=== PATIENT | female | born 1990 | race Caucasian/White ===

== ENCOUNTER 2024-01-02 19:54 | Inpatient (IN) | payer BC ==
[~2024-01-02 19:54] MED LIST: Acetaminophen 500 MG TAB PO PRN; Carboprost 250 MCG/ML AMP IM PRN; HYDROcodone/Acetaminophen 5/325 mg Tablet PO PRN; Ibuprofen 800 MG TAB PO PRN; Lactated Ringer's 1,000 ML IV SCH; Lidocaine 1% (PF) 30 ML VIAL SC PRN; Oxytocin 30 units/NS 500 ML 500 ML IV SCH; Promethazine HCl 25 MG/ML VIAL IM PRN; fentaNYL 50 mcg/mL 1 mL Vial SLOW IVP PRN; hydrALAZINE 20 MG/ML VIAL SLOW IVP PRN
[2024-01-02 20:32] VITALS: BMI 39.9
[2024-01-02] MEDS ORDERED: Penicillin G Potassium 5 MILL.UNITS in Sodium Chloride 0.9% 100 ML IVPB SCH (21:00)
[2024-01-02] MEDS: Misoprostol 100 MCG TAB VAG SCH (21:22)
[2024-01-02 21:32] LABS: Hematocrit 34.6 % (34.9-44.5); Hemoglobin 12.1 g/dL (12.0-15.5); Mean Corpuscular Hemoglobin 30.9 pg (27.0-33.0); Mean Corpuscular Volume 88.5 fL (81.6-98.3); Mean Platelet Volume 10.1 fL (7.4-10.4); Platelet Count 361 10x3/uL (150-450); RBC Distribution Width 12.1 % (11.5-14.5); Red Blood Cell (RBC) Count 3.91 10x6/uL (3.90-5.03); White Blood Cell (WBC) Count 10.7 10x3/uL (3.5-10.5)
[2024-01-02 21:49] LABS: ALT (SGPT) 12 U/L (8-55); AST (SGOT) 21 U/L (5-34); Albumin 2.5 g/dL (3.5-5.0); Alkaline Phosphatase 64 U/L (40-110); Anion Gap 16 mmol/L (10-20); BUN (Urea Nitrogen) 14 mg/dL (7.0-18.7); Bilirubin, Total 0.2 mg/dL (0.2-1.2); Calc. Creatinine Clearance 202 mL/min (70-130); Calcium 9.3 mg/dL (7.8-10.44); Carbon Dioxide 18 mmol/L (22-29); Chloride 107 mmol/L (98-107); Estimated GFR 118; Globulin 4.2 g/dL (2.4-3.5); Glucose 116 mg/dL (70-105); Potassium 3.7 mmol/L (3.5-5.1); Protein, Total 6.7 g/dL (6.0-8.3); Sodium 137 mmol/L (136-145)
[2024-01-02 22:49] LABS: HBsAg Index 0.18 S/CO (0-0.99); Hep B Surf Ag - L&D Non-Reactive S/CO (NonReactive)
[2024-01-02 22:50] LABS: Syphilis Antibody Nonreactive (Nonreactive); Syphilis Antibody Index 0.13 S/CO (<1.00 Non-Reactive)
[2024-01-03] MEDS ORDERED: Penicillin G 2.5 MILL.units 2.5 MILL.UNITS in Premix 1 BAG IVPB SCH (01:00)
[2024-01-03] MEDS: Labetalol HCl 200 MG TAB PO SCH (09:18)
[2024-01-03] MEDS: Amlodipine 5 MG TAB PO SCH (09:19)
[2024-01-03] MEDS: Ondansetron PF 4 MG/2 ML Vial IVP PRN (13:38)
[2024-01-03] MEDS: fentaNYL/Ropivacaine Epidural 100 ML ONE (14:16)
[2024-01-03] MEDS ORDERED: Ondansetron PF 4 MG/2 ML Vial IVP PRN ×2 (14:50→21:47)
[2024-01-03] MEDS ORDERED: Promethazine HCl 25 MG/ML VIAL IM PRN ×2 (14:50→21:47)
[2024-01-03] MEDS ORDERED: Naloxone HCl 0.4 mg/ml Vial IVP PRN ×4 (14:50→21:47)
[2024-01-03] MEDS ORDERED: ePHEDrine Sulfate 50 MG/10 ML VIAL SLOW IVP PRN (14:50)
[2024-01-03] MEDS ORDERED: Moisturizing Cream (Eucerin) 113 GM JAR TOP PRN ×2 (14:50→21:47)
[2024-01-03] MEDS ORDERED: diphenhydrAMINE 50 MG/ML VIAL IVP PRN ×2 (14:50→21:47)
[2024-01-03] MEDS ORDERED: Lactated Ringer's 500 ML IV PRN (14:50)
[2024-01-03] MEDS ORDERED: Acetaminophen 325 MG TAB PO PRN (14:50)
[2024-01-03] MEDS ORDERED: Communication Order-Pharmacy FS SCH ×2 (15:00→22:00)
[2024-01-03] MEDS ORDERED: fentaNYL 2 mcg/Ropivacaine 0.2% Epidural 100 ML CADD EPIDURAL SCH (15:00)
[2024-01-03] MEDS: Penicillin G Potassium 5 MILL.UNITS VIAL ONE (18:56)
[2024-01-03] MEDS ORDERED: Naloxone HCl 0.4 mg/ml Vial IV PRN (21:47)
[2024-01-03] MEDS ORDERED: fentaNYL 50 mcg/mL 1 mL Vial SLOW IVP PRN (21:47)
[2024-01-03] MEDS ORDERED: Meperidine HCl/PF 25 MG (1 mL) VIAL SLOW IVP PRN (21:47)
[2024-01-03] MEDS ORDERED: Morphine 4 MG/ML VIAL SLOW IVP PRN (21:47)
[2024-01-03] MEDS ORDERED: Ketorolac Tromethamine 30 MG (1 mL) VIAL IVP SCH (22:00)
[2024-01-03] MEDS: Diphenoxylate HCl/Atropine Tablet PO PRN (23:14)
[2024-01-03] MEDS: Misoprostol 200 MCG TAB PR PRN (23:15)
[2024-01-03] MEDS: Carboprost 250 MCG/ML AMP ONE (23:15)
[2024-01-03] MEDS: Oxytocin 30 units/NS 500 ML 500 ML IV SCH (23:16)
[2024-01-03] MEDS: Tranexamic Acid 1,000 MG/10 ML VIAL ONE (23:17)
[2024-01-04] MEDS: Ondansetron PF 4 MG/2 ML Vial IVP PRN ×2 (00:07→04:48)
[2024-01-04] MEDS ORDERED: Acetaminophen 325 MG TAB PO PRN (02:03)
[2024-01-04] MEDS ORDERED: Bisacodyl 10 MG SUPP PR PRN (02:03)
[2024-01-04] MEDS ORDERED: hydrALAZINE 20 MG/ML VIAL SLOW IVP PRN (02:03)
[2024-01-04] MEDS ORDERED: Lanolin Ointment 7 GM TUBE TOP PRN (02:03)
[2024-01-04] MEDS ORDERED: Simethicone Chewable 80 MG TAB PO PRN (02:03)
[2024-01-04] MEDS ORDERED: diphenhydrAMINE 25 MG CAP PO PRN (02:03)
[2024-01-04] MEDS ORDERED: Communication Order-Pharmacy FS SCH (02:15)
[2024-01-04 03:57] LABS: Hematocrit 28.3 % (34.9-44.5); Hemoglobin 9.8 g/dL (12.0-15.5); Mean Corpuscular HGB CONC 34.6 g/dL (32.0-36.0); Mean Corpuscular Hemoglobin 31.5 pg (27.0-33.0); Mean Platelet Volume 10.1 fL (7.4-10.4); Platelet Count 301 10x3/uL (150-450); RBC Distribution Width 12.4 % (11.5-14.5); Red Blood Cell (RBC) Count 3.11 10x6/uL (3.90-5.03); White Blood Cell (WBC) Count 15.4 10x3/uL (3.5-10.5)
[2024-01-04] MEDS ORDERED: Ketorolac Tromethamine 30 MG (1 mL) VIAL IVP PRN (04:00)
[2024-01-04] MEDS: Ondansetron PF 4 MG/2 ML Vial ONE (07:22)
[2024-01-04] MEDS: Morphine PF 10 MG/10 ML VIAL ONE (07:22)
[2024-01-04] MEDS: Azithromycin 500 MG VIAL ONE (07:22)
[2024-01-04] MEDS: Misoprostol 200 MCG TAB ONE (07:22)
[2024-01-04] MEDS: CEFAZOLIN 2 GM VIAL ONE (07:22)
[2024-01-04] MEDS: Promethazine HCl 25 MG/ML VIAL ONE (07:22)
[2024-01-04] MEDS: Ketorolac Tromethamine 30 MG (1 mL) VIAL ONE (07:22)
[2024-01-04] MEDS: Sodium Chloride 0.9% 100 ML ONE (07:22)
[2024-01-04] MEDS: PHENYLEPHRINE-NS 100 MCG/ML 10 ML SYRINGE ONE (07:22)
[2024-01-04] MEDS: Oxytocin 30 units/NS 500 ML 500 ML ONE (07:23)
[2024-01-04] MEDS: Boostrix 0.5 ML (Tdap) VIAL (>/=7 yrs of age) IM ONE (07:23)
[2024-01-04] MEDS: Ibuprofen 800 MG TAB PO SCH (07:23)
[2024-01-04] MEDS: Ferrous Sulfate 325 MG TAB PO SCH (08:03)
[2024-01-04] MEDS: Prenatal Vitamin 1 TAB PO SCH (08:03)
[2024-01-04] MEDS: Docusate 100 MG CAP PO SCH (08:03)
[2024-01-04] MEDS: Promethazine HCl 25 MG/ML VIAL IM PRN (09:30)
[2024-01-04] MEDS ORDERED: HYDROcodone/Acetaminophen 5/325 mg Tablet PO PRN ×2 (10:00)
[2024-01-05 11:56] VITALS: BP 122/77; TEMP 98.5
== END 2024-01-05 15:15 | disposition home or self-care (01) | DRG 788 ==
LOC: CSHLD 19:54 → CSHPP 01-04 01:22
PROVIDERS: ADMIT Student in an Organized Health Care Education/Training Program; ATTEND Student in an Organized Health Care Education/Training Program
PROC: 0U7C7ZZ Dilation of Cervix, Via Natural or Artificial Opening (ICD-10-PCS; 2024-01-03)
PROC: 10907ZC Drainage of Amniotic Fluid, Therapeutic from Products of Conception, Via Natural or Artificial Opening (ICD-10-PCS; 2024-01-03)
PROC: 10D00Z1 Extraction of Products of Conception, Low, Open Approach (ICD-10-PCS; principal; 2024-01-04)
DX: O10.92 Unspecified pre-existing hypertension complicating childbirth (principal); Z3A.37 37 weeks gestation of pregnancy; Z37.9 Outcome of delivery, unspecified; Z79.82 Long term (current) use of aspirin; Z79.899 Other long term (current) drug therapy; O99.824 Streptococcus B carrier state complicating childbirth; O76 Abnormality in fetal heart rate and rhythm complicating labor and delivery
CPT/HCPCS: 36415; 36416; 51702; 80053; 85027; 86780; 86850; 86900; 86901; 87340; J1885; J2274; J2405; J2540; J2550; J2590; J3490